=== PATIENT | female | born 1995 | race Caucasian/White ===

== ENCOUNTER 2019-02-19 18:02 | Emergency (ER) | payer BC, MEDICAID ==
[2019-02-19] MEDS ORDERED: Cephalexin 500 MG Cap PO ONE (18:26)
[2019-02-19] MEDS ORDERED: diphenhydrAMINE 25 MG Tab PO ONE (18:26)
[2019-02-19] MEDS ORDERED: predniSONE 10 MG Tab PO ONE (18:26)
--- NOTE | 2019-02-19 18:31 | EDM.PDOC ---
ED HPI GENERAL MEDICAL PROBLEM - General Chief Complaint: Skin Complaint Stated Complaint: ALLERGIC REACTION Time Seen by Provider: 02/19/19 18:10 Source of Information: Reports: Patient History Limitations: Reports: No Limitations - History of Present Illness INITIAL COMMENTS - FREE TEXT/NARRATIVE: ED with c/o of allergic reaction with rash to hands and arms. Notes new type product and has hx of eczema. Onset one week ago. Has not tried anything for rash. Tonight chest feeling tight. No cough No hoarseness no difficulty swallowing. Itching. no fever or chills. - Related Data Allergies Allergy/AdvReac Type Severity Reaction Status Date / Time No Known Allergies Allergy Verified 02/19/19 18:47 Home Meds: Home Meds . [No Known Home Meds] 05/28/14 [History] Past Medical History - Past Health History Medical/Surgical History: Denies Medical/Surgical History ED ROS GENERAL - Review of Systems Review Of Systems: Comprehensive ROS is negative, except as noted in HPI. ED EXAM, SKIN/RASH Exam: See Below Exam Limited By: No Limitations General Appearance: Alert, No Apparent Distress Eye Exam: Bilateral Eye: EOMI Ears: Normal External Exam Nose: Normal Inspection Throat/Mouth: Normal Inspection, Normal Lips, Normal Voice, No Airway Compromise Head: Atraumatic, Normocephalic Neck: Normal Inspection Respiratory/Chest: No Respiratory Distress, Lungs Clear, Normal Breath Sounds Cardiovascular: Normal Peripheral Pulses, Regular Rate, Rhythm GI/Abdominal: Normal Bowel Sounds, Soft Extremities: Normal Inspection Neurological: Alert, Oriented, Normal Cognition Psychiatric: Anxious Skin: Warm, Dry, Rash (few hive type patches bilateral forearms, scattered excoriations to hands and lower forearm. tina areas on upper arms, no lesion to web spacing, ) Characteristics: Patchy, Vesicular (few small lower forearms). No: Linear Associated features: Inflammation, Rough. No: Weeping Course - Vital Signs Last Recorded V/S: Last Vital Signs Temp 96.8 F 02/19/19 18:02 Pulse 62 02/19/19 18:02 Resp 16 02/19/19 18:02 BP 110/71 02/19/19 18:02 Pulse Ox 98 02/19/19 18:02 - Orders/Labs/Meds Meds: Medications Discontinued Medications Generic Name Dose Route Start Last Admin Trade Name Freq PRN Reason Stop Dose Admin Cephalexin 500 mg 02/19/19 18:26 02/19/19 18:43 Keflex PO 02/19/19 18:27 500 mg ONETIME ONE Administration Diphenhydramine HCl 25 mg 02/19/19 18:26 02/19/19 18:45 Benadryl PO 02/19/19 18:27 25 mg ONETIME ONE Administration Prednisone 10 mg 02/19/19 18:26 02/19/19 18:44 Prednisone PO 02/19/19 18:27 10 mg ONETIME ONE Administration Departure - Departure Time of Disposition: 18:27 Disposition: Home, Self-Care 01 Condition: Good Clinical Impression: Pruritic rash Contact dermatitis Qualifiers: Contact dermatitis type: irritant Contact dermatitis trigger: unspecified trigger Qualified Code(s): L24.9 - Irritant contact dermatitis, unspecified cause - Discharge Information *PRESCRIPTION DRUG MONITORING PROGRAM REVIEWED*: No *COPY OF PRESCRIPTION DRUG MONITORING REPORT IN PATIENT MAMIE: No Instructions: Rash Referrals: David Pandya NP [Primary Care Provider] - Forms: ED Department Discharge Additional Instructions: prednisone 10mg one daily x 5 days benadryl 25mg one every 4 hours as needed for itching rash keflex 500mg one three times daily x 7 days follow up if worsening fever chills. monitor if spreading of lesions, especially to others or web spaces or other parts of body Sepsis Event Note - Focused Exam Vital Signs: Vital Signs Temp Pulse Resp BP Pulse Ox 02/19/19 18:02 96.8 F 62 16 110/71 98 Date Exam was Performed: 02/20/19 Time Exam was Performed: 04:59
[2019-02-19 18:47] VITALS: BP 110/71; PULSE 62
== END 2019-02-19 18:54 | disposition home or self-care (01) ==
LOC: DL.ED 18:02
DX: L24.9 Irritant contact dermatitis, unspecified cause (principal); L29.9 Pruritus, unspecified
CPT/HCPCS: 99283; A9270

== ENCOUNTER 2019-11-27 18:22 | Emergency (ER) | payer MEDICAID ==
[2019-11-27 18:47] VITALS: BP 116/76; PULSE 99
[2019-11-27] MEDS ORDERED: Amoxicillin/Clavulanate K 875-125 MG Tab PO ONE (18:57)
[2019-11-27] MEDS ORDERED: Ibuprofen 600 MG Tab PO ONE (18:59)
--- NOTE | 2019-11-27 19:04 | EDM.PDOC ---
ED HPI GENERAL MEDICAL PROBLEM - General Chief Complaint: ENT Problem Stated Complaint: BOTH EARS HURT, INFECTION, HEAD HURTS Time Seen by Provider: 11/27/19 18:45 Source of Information: Reports: Patient History Limitations: Reports: No Limitations - History of Present Illness INITIAL COMMENTS - FREE TEXT/NARRATIVE: c/o right ear pain x 2 weeks. Seen in clinic on Friday started on Cipro ear drops, not helping, Increased ear pain radiating down neck on right side and up to forehead. no fever chills or sore throat Right Ear Pain Score (Numeric/FACES): 7 - Related Data Allergies Allergy/AdvReac Type Severity Reaction Status Date / Time No Known Allergies Allergy Verified 11/27/19 18:47 Home Meds: Home Meds Ciprofloxacin HCl/Dexameth [Ciproflox-Dexameth Otic Susp] 7.5 ml OT 11/27/19 [History] Past Medical History - Past Health History Medical/Surgical History: Denies Medical/Surgical History HEENT History: Reports: None Cardiovascular History: Reports: None Respiratory History: Reports: Asthma Genitourinary History: Reports: None CLIENT ADVOCATE History: Reports: None Musculoskeletal History: Reports: None Neurological History: Reports: None Psychiatric History: Reports: Anxiety, Depression Endocrine/Metabolic History: Reports: None Hematologic History: Reports: None Immunologic History: Reports: None Oncologic (Cancer) History: Reports: None Dermatologic History: Reports: None - Infectious Disease History Infectious Disease History: Reports: None Social & Family History - Family History Family Medical History: Noncontributory - Tobacco Use Smoking Status *Q: Never Smoker - Caffeine Use Caffeine Use: Reports: Coffee - Recreational Drug Use Recreational Drug Use: No ED ROS ENT - Review of Systems Review Of Systems: Comprehensive ROS is negative, except as noted in HPI. ED EXAM, ENT - Physical Exam Exam: See Below Exam Limited By: No Limitations General Appearance: Alert, Mild Distress Eye Exam: Bilateral Eye: EOMI Ears: Normal External Exam, Normal Canal (mild erythema right), Auricular Tenderness, TM Erythema (right), TM Fluid (bilateral right greater). No: Mastoid Swelling, Mastoid Tenderness, TM Perforation Nose: Normal Inspection Mouth/Throat: Normal Inspection Head: Atraumatic, Normocephalic Neck: Normal Inspection, Full Range of Motion, Lymphadenopathy (R) (anterior) Respiratory/Chest: No Respiratory Distress, Lungs Clear, Normal Breath Sounds Cardiovascular: Normal Peripheral Pulses, Regular Rate, Rhythm Extremities: Normal Inspection, Normal Range of Motion Psychiatric: Normal Affect, Normal Mood Skin: Warm, Dry, Intact, Normal Color Course - Vital Signs Last Recorded V/S: Last Vital Signs Temp 99.4 F 11/27/19 18:44 Pulse 99 11/27/19 18:44 Resp 18 11/27/19 18:44 BP 116/76 11/27/19 18:44 Pulse Ox 97 11/27/19 18:44 - Orders/Labs/Meds Meds: Medications Discontinued Medications Generic Name Dose Route Start Last Admin Trade Name Freq PRN Reason Stop Dose Admin Amoxicillin/Clavulanate Potassium 1 tab 11/27/19 18:57 11/27/19 19:02 Augmentin 875 Mg/125 Mg PO 11/27/19 18:58 1 tab ONETIME ONE Administration Ibuprofen 600 mg 11/27/19 18:59 11/27/19 19:04 Motrin PO 11/27/19 19:00 600 mg ONETIME ONE Administration Departure - Departure Time of Disposition: 19:02 Disposition: Home, Self-Care 01 Condition: Good Clinical Impression: Otitis media Qualifiers: Otitis media type: suppurative Chronicity: acute Laterality: bilateral Recurrence: not specified as recurrent Spontaneous tympanic membrane rupture: without spontaneous rupture Qualified Code(s): H66.003 - Acute suppurative o titis media without spontaneous rupture of ear drum, bilateral - Discharge Information *PRESCRIPTION DRUG MONITORING PROGRAM REVIEWED*: No Instructions: Otitis Media, Adult, [id number] Forms: ED Department Discharge Additional Instructions: alternate tylenol 650mg and ibuprofen 600mg every 4 hours as needed for discomfort omnicef 300mg one twice daily for 7 days recheck clinic upcoming week may stop ear drops when obtain oral antibiotic from pharmacy Sepsis Event Note (ED) - Evaluation Sepsis Screening Result: No Definite Risk - Focused Exam Vital Signs: Vital Signs Temp Pulse Resp BP Pulse Ox 11/27/19 18:44 99.4 F 99 18 116/76 97
== END 2019-11-27 19:09 | disposition home or self-care (01) ==
LOC: DL.ED 18:22
DX: H66.003 Acute suppurative otitis media without spontaneous rupture of ear drum, bilateral (principal)
CPT/HCPCS: 99282; A9270

== ENCOUNTER 2023-01-24 08:28 | Inpatient (IN) | payer MEDICAID ==
[2023-01-24] MEDS ORDERED: Sodium Chloride 0.9% 10 ML Syringe FLUSH PRN (08:36)
[2023-01-24] MEDS ORDERED: Sodium Chloride 0.9% 1,000 ML IV ONE (08:38)
[2023-01-24] MEDS ORDERED: HYDROmorphone 1 MG/ML Syringe IVPUSH ONE ×2 (08:38→08:46)
[2023-01-24] MEDS ORDERED: Ondansetron 4 MG/2 ML SDV IV ONE (08:38)
[2023-01-24] MEDS ORDERED: Famotidine 20 MG/2 ML SDV IVPUSH ONE (08:46)
[2023-01-24 08:47] LABS: BASOPHILS PERCENT AUTO 0.6 % (0.0-1.0); EOSINOPHILS PERCENT AUTO 1.3 % (1.0-3.0); HEMATOCRIT 41.7 % (37.0-47.0); HEMOGLOBIN 14.1 g/dL (12.0-16.0); LYMPHOCYTES PERCENT AUTO 21.6 % (20.5-50.1); MEAN CORPUSCULAR HGB CONC 33.8 g/dL (33.0-35.0); MEAN CORPUSCULAR VOLUME 85.8 fL (80-100); MONOCYTES PERCENT AUTO 7.5 % (2-8); PLATELET COUNT,PLT 321 10^3/uL (150-450); RED BLOOD CELL COUNT 4.86 10^6/uL (4.2-5.4); WHITE BLOOD CELL COUNT,WBC 7.2 10^3/uL (5.0-10.0)
[2023-01-24 09:14] LABS: LACTIC ACID 1.9 mmol/L (0.4-2.0)
[2023-01-24 09:18] LABS: A/G RATIO 0.9; ALANINE AMINOTRANSFERASE,ALT 73 U/L (14-59); ALBUMIN 3.8 g/dL (3.4-5.0); ALKALINE PHOSPHATASE 102 U/L (46-116); AMYLASE 46 U/L (25-115); ANION GAP 10.7 mEq/L (7-13); ASPARTATE AMNIOTRANSFERASE,AST 31 U/L (15-37); BILIRUBIN TOTAL 0.5 mg/dL (0.2-1.0); BLOOD UREA NITROGEN,BUN 13 mg/dL (7-18); BUN/CREATININE RATIO 14.8 (No establ ref range); CALCIUM 8.9 mg/dL (8.5-10.1); CARBON DIOXIDE,CO2 28 mmol/L (21-32); CHLORIDE,CL 101 mmol/L (98-107); CREATININE 0.88 mg/dL (0.55-1.02); EST CRCL DRUG DOSING (CG) 75.95 mL/min; GLUCOSE RANDOM 113 mg/dL (70-99); POTASSIUM,K 3.7 mmol/L (3.5-5.1); SODIUM,NA 136 mmol/L (136-145)
[2023-01-24 09:20] LABS: ESTIMATED GFR 92 mL/min (>=60); LIPASE > 250 U/L (16-77)
[2023-01-24 09:29] LABS: HCG QUALITATIVE,SERUM NEGATIVE (NEGATIVE)
[2023-01-24] MEDS ORDERED: Iopamidol 612 MG/ML 100 ML Bottle IVPUSH ONE ×2 (09:30)
[2023-01-24] MEDS ORDERED: Temazepam 15 MG Cap PO PRN (11:31)
[2023-01-24] MEDS ORDERED: Albuterol/Ipratropium 3.0-0.5 MG/3 ML Neb Soln NEB PRN (11:31)
[2023-01-24] MEDS ORDERED: Acetaminophen 325 MG Tab PO PRN (11:31)
[2023-01-24] MEDS ORDERED: Acetaminophen/oxyCODONE 325-5 MG Tab PO PRN (11:31)
[2023-01-24] MEDS ORDERED: Metoprolol Tartrate 5 MG/5 ML SDV IVPUSH PRN (11:36)
[2023-01-24] MEDS ORDERED: hydrALAZINE 20 MG/ML SDV IVPUSH PRN (11:36)
[2023-01-24 11:55] LABS: CHOLESTEROL HDL 38 mg/dL (40-59)
[2023-01-24 12:11] LABS: CHOLESTEROL LDL CALCULATED 157 mg/dL (0-100); CHOLESTEROL TOTAL 234 mg/dL (0-199); TRIGLYCERIDES 197 mg/dL (0-149)
[2023-01-24] MEDS: Dextrose 5%-0.9% NaCl 1,000 ML IV SCH (12:47)
[2023-01-24] MEDS: HYDROmorphone 0.5 MG/0.5 ML Syringe IVPUSH PRN ×3 (12:49→21:10)
[2023-01-24] MEDS ORDERED: Zolpidem 5 MG Tab PO PRN (15:01)
[2023-01-24] MEDS: Ondansetron 4 MG/2 ML SDV IVPUSH PRN ×2 (15:21→21:50)
[2023-01-24] MEDS: Famotidine 20 MG/2 ML SDV IVPUSH SCH (21:06)
[2023-01-24] MEDS: Ketorolac 30 MG/ML SDV IVPUSH PRN (23:28)
[2023-01-25] MEDS: HYDROmorphone 0.5 MG/0.5 ML Syringe IVPUSH PRN ×4 (00:18→16:48)
[2023-01-25 06:16] LABS: BASOPHILS PERCENT AUTO 0.3 % (0.0-1.0); EOSINOPHILS PERCENT AUTO 1.6 % (1.0-3.0); HEMATOCRIT 38.2 % (37.0-47.0); HEMOGLOBIN 12.6 g/dL (12.0-16.0); LYMPHOCYTES PERCENT AUTO 23.2 % (20.5-50.1); MEAN CORPUSCULAR HEMOGLOBIN 28.8 pg (27.0-34.0); MEAN CORPUSCULAR VOLUME 87.2 fL (80-100); MONOCYTES PERCENT AUTO 6.8 % (2-8); NEUTROPHILS PERCENT AUTO 68.1 % (42.2-75.2); PLATELET COUNT,PLT 256 10^3/uL (150-450); RED BLOOD CELL COUNT 4.38 10^6/uL (4.2-5.4); WHITE BLOOD CELL COUNT,WBC 6.3 10^3/uL (5.0-10.0)
[2023-01-25 06:41] LABS: ALBUMIN 3.2 g/dL (3.4-5.0); ANION GAP 7.6 mEq/L (7-13); BILIRUBIN TOTAL 0.5 mg/dL (0.2-1.0); BUN/CREATININE RATIO 13.8 (No establ ref range); CALCIUM 8.2 mg/dL (8.5-10.1); CREATININE 0.8 mg/dL (0.55-1.02); EST CRCL DRUG DOSING (CG) 75.87 mL/min; MAGNESIUM 2.2 mg/dL (1.8-2.4); POTASSIUM,K 3.6 mmol/L (3.5-5.1)
[2023-01-25 06:46] LABS: A/G RATIO 0.84
[2023-01-25] MEDS: Dextrose 5%-0.9% NaCl 1,000 ML IV SCH (08:58)
[2023-01-25] MEDS: Famotidine 20 MG/2 ML SDV IVPUSH SCH ×2 (08:58→21:07)
[2023-01-25] MEDS ORDERED: oxyCODONE ER 20 MG TAB.ER PO SCH (09:00)
[2023-01-25] MEDS: Naloxone 2 MG/2 ML Syringe IVPUSH PRN ×2 (19:51→19:58)
[2023-01-25] MEDS: Ondansetron 4 MG/2 ML SDV IVPUSH PRN (19:51)
[2023-01-25] MEDS ORDERED: Lidocaine 2% Viscous Solution 15 ML UD PO PRN (20:42)
[2023-01-25] MEDS: Ketorolac 30 MG/ML SDV IVPUSH PRN (20:59)
[2023-01-25 22:19] LABS: AMPHETAMINES,URINE NEGATIVE (NEGATIVE); BARBITURATES,URINE NEGATIVE (NEGATIVE); BENZODIAZEPINE,URINE NEGATIVE (NEGATIVE); PHENCYCLIDINE,URINE NEGATIVE (NEGATIVE); TCA,URINE NEGATIVE (NEGATIVE)
[2023-01-25 22:20] LABS: MDMA (ECSTASY), URINE NEGATIVE (NEGATIVE); METHADONE,URINE NEGATIVE (NEGATIVE); METHAMPHETAMINES,URINE NEGATIVE (NEGATIVE); OPIATES,URINE NEGATIVE (NEGATIVE)
[2023-01-25 22:23] LABS: OXYCODONE,URINE POSITIVE (NEGATIVE)
[2023-01-26 06:46] LABS: BASOPHILS PERCENT AUTO 0.6 % (0.0-1.0); EOSINOPHILS PERCENT AUTO 1.9 % (1.0-3.0); HEMATOCRIT 37.8 % (37.0-47.0); HEMOGLOBIN 12.7 g/dL (12.0-16.0); LYMPHOCYTES PERCENT AUTO 22.9 % (20.5-50.1); MEAN CORPUSCULAR HEMOGLOBIN 29.2 pg (27.0-34.0); MEAN CORPUSCULAR HGB CONC 33.6 g/dL (33.0-35.0); MEAN CORPUSCULAR VOLUME 86.9 fL (80-100); MONOCYTES PERCENT AUTO 7.1 % (2-8); NEUTROPHILS PERCENT AUTO 67.5 % (42.2-75.2); PLATELET COUNT,PLT 250 10^3/uL (150-450); RED BLOOD CELL COUNT 4.35 10^6/uL (4.2-5.4); WHITE BLOOD CELL COUNT,WBC 5.4 10^3/uL (5.0-10.0)
[2023-01-26 07:13] LABS: ALANINE AMINOTRANSFERASE,ALT 54 U/L (14-59); ALBUMIN 3.3 g/dL (3.4-5.0); ALKALINE PHOSPHATASE 89 U/L (46-116); ANION GAP 8.5 mEq/L (7-13); ASPARTATE AMNIOTRANSFERASE,AST 20 U/L (15-37); BILIRUBIN TOTAL 0.5 mg/dL (0.2-1.0); BLOOD UREA NITROGEN,BUN 9 mg/dL (7-18); BUN/CREATININE RATIO 11.5 (No establ ref range); CALCIUM 8.4 mg/dL (8.5-10.1); CARBON DIOXIDE,CO2 28 mmol/L (21-32); CHLORIDE,CL 104 mmol/L (98-107); CREATININE 0.78 mg/dL (0.55-1.02); EST CRCL DRUG DOSING (CG) 77.82 mL/min; GLUCOSE RANDOM 88 mg/dL (70-99); MAGNESIUM 2.3 mg/dL (1.8-2.4); POTASSIUM,K 3.5 mmol/L (3.5-5.1); PROTEIN TOTAL,TP 7.2 g/dL (6.4-8.2); SODIUM,NA 137 mmol/L (136-145)
[2023-01-26 07:34] LABS: A/G RATIO 0.85; ESTIMATED GFR 107 mL/min (>=60); LIPASE > 250 U/L (16-77)
[2023-01-26] MEDS ORDERED: Iopamidol 755 Mg/ML 100 ML Bottle IVPUSH ONE (08:07)
[2023-01-26] MEDS: Famotidine 20 MG/2 ML SDV IVPUSH SCH (08:22)
[2023-01-26] MEDS ORDERED: Iopamidol 612 MG/ML 100 ML Bottle IVPUSH ONE (08:59)
[2023-01-26] MEDS ORDERED: Bisacodyl 10 MG Supp RECTAL PRN (10:49)
[2023-01-26] MEDS ORDERED: Bisacodyl 10 MG Supp RECTAL ONE (10:49)
[2023-01-26] MEDS ORDERED: Sodium Chloride 0.9% 1,000 ML IV SCH (11:00)
[2023-01-26] MEDS: Ketorolac 30 MG/ML SDV IVPUSH PRN (11:17)
[2023-01-26] MEDS: Acetaminophen/Butalbital/Caffeine 325-50-40 MG Tab PO PRN ×2 (13:17→20:39)
[2023-01-26] MEDS: Lactulose Soln 10 GM/15 ML 30 ML UD Cup PO SCH ×2 (13:18→22:39)
[2023-01-26] MEDS: Famotidine 20 MG Tab PO SCH (20:40)
[2023-01-27] MEDS: Lactulose Soln 10 GM/15 ML 30 ML UD Cup PO SCH (05:31)
[2023-01-27 06:41] LABS: BASOPHILS PERCENT AUTO 0.7 % (0.0-1.0); HEMATOCRIT 40.8 % (37.0-47.0); HEMOGLOBIN 13.7 g/dL (12.0-16.0); MEAN CORPUSCULAR HEMOGLOBIN 28.8 pg (27.0-34.0); MEAN CORPUSCULAR HGB CONC 33.6 g/dL (33.0-35.0); MEAN CORPUSCULAR VOLUME 85.9 fL (80-100); MONOCYTES PERCENT AUTO 8.1 % (2-8); NEUTROPHILS PERCENT AUTO 71.2 % (42.2-75.2); PLATELET COUNT,PLT 262 10^3/uL (150-450); RED BLOOD CELL COUNT 4.75 10^6/uL (4.2-5.4)
[2023-01-27 07:03] LABS: A/G RATIO 0.9; ALANINE AMINOTRANSFERASE,ALT 54 U/L (14-59); ALBUMIN 3.6 g/dL (3.4-5.0); ALKALINE PHOSPHATASE 93 U/L (46-116); ANION GAP 10.7 mEq/L (7-13); ASPARTATE AMNIOTRANSFERASE,AST 23 U/L (15-37); BILIRUBIN TOTAL 0.5 mg/dL (0.2-1.0); BLOOD UREA NITROGEN,BUN 10 mg/dL (7-18); BUN/CREATININE RATIO 10.9 (No establ ref range); CALCIUM 8.5 mg/dL (8.5-10.1); CARBON DIOXIDE,CO2 28 mmol/L (21-32); CHLORIDE,CL 102 mmol/L (98-107); CREATININE 0.92 mg/dL (0.55-1.02); EST CRCL DRUG DOSING (CG) 65.98 mL/min; GLUCOSE RANDOM 97 mg/dL (70-99); MAGNESIUM 2.3 mg/dL (1.8-2.4); POTASSIUM,K 3.7 mmol/L (3.5-5.1); PROTEIN TOTAL,TP 7.6 g/dL (6.4-8.2); SODIUM,NA 137 mmol/L (136-145)
[2023-01-27 07:04] LABS: ESTIMATED GFR 88 mL/min (>=60)
[2023-01-27 07:05] LABS: C-REACTIVE PROTEIN < 0.50 ng/dL (<=0.50); LIPASE > 250 U/L (16-77)
[2023-01-27] MEDS: Famotidine 20 MG Tab PO SCH (08:22)
[2023-01-27] MEDS: Acetaminophen/Butalbital/Caffeine 325-50-40 MG Tab PO PRN (08:30)
[2023-01-27 11:37] VITALS: BP 137/89; PULSE 71
== END 2023-01-27 12:25 | disposition home or self-care (01) | DRG 440 ==
LOC: DL.ED 08:28 → DL.MS 10:28 → DL.ED 10:55
PROVIDERS: ADMIT Internal Medicine; ATTEND Internal Medicine
DX: K85.00 Idiopathic acute pancreatitis without necrosis or infection (principal); K76.0 Fatty (change of) liver, not elsewhere classified; E78.5 Hyperlipidemia, unspecified; E66.9 Obesity, unspecified; I10 Essential (primary) hypertension; E11.65 Type 2 diabetes mellitus with hyperglycemia; J45.998 Other asthma; F41.9 Anxiety disorder, unspecified; F32.A Depression, unspecified; Z68.34 Body mass index [BMI] 34.0-34.9, adult; Z79.899 Other long term (current) drug therapy
CPT/HCPCS: 36415; 70450; 71045; 74177; 80053; 80061; 80305-QW; 82150; 82947; 83605; 83690; 83735; 84484; 84703; 85025; 86140; 93005; 93010; 94664; 96374; 96375; 99223; 99232; 99233; 99238; 99284; 99285-25; A9270-GY; J1170; J1885; J2310; J2405; J3490; J7030; J7042; Q9967

== ENCOUNTER 2023-08-27 12:36 | Emergency (ER) | payer MEDICAID ==
[2023-08-27 13:03] VITALS: BP 147/115; PULSE 67
[2023-08-27 13:06] LABS: BASOPHILS PERCENT AUTO 1.3 % (0.0-1.0); EOSINOPHILS PERCENT AUTO 1.3 % (1.0-3.0); HEMATOCRIT 38.2 % (37.0-47.0); HEMOGLOBIN 13.1 g/dL (12.0-16.0); LYMPHOCYTES PERCENT AUTO 23.6 % (20.5-50.1); MEAN CORPUSCULAR HEMOGLOBIN 30.6 pg (27.0-34.0); MEAN CORPUSCULAR HGB CONC 34.3 g/dL (33.0-35.0); MEAN CORPUSCULAR VOLUME 89.3 fL (80-100); MONOCYTES PERCENT AUTO 8.5 % (2-8); NEUTROPHILS PERCENT AUTO 65.3 % (42.2-75.2); PLATELET COUNT,PLT 266 10^3/uL (150-450); RED BLOOD CELL COUNT 4.28 10^6/uL (4.2-5.4); WHITE BLOOD CELL COUNT,WBC 6.3 10^3/uL (5.0-10.0)
[2023-08-27 13:34] LABS: INR 0.9 (0.9-1.2); PROTHROMBIN TIME 9.8 SEC (9.0-12.0); PTT,PARTIAL THROMBOPLSTIN TIME 25.7 SEC (22.0-34.0)
[2023-08-27 13:35] LABS: A/G RATIO 0.9; ALANINE AMINOTRANSFERASE,ALT 188 U/L (14-59); ALBUMIN 3.7 g/dL (3.4-5.0); ALKALINE PHOSPHATASE 74 U/L (46-116); ANION GAP 8.9 mEq/L (7-13); ASPARTATE AMNIOTRANSFERASE,AST 117 U/L (15-37); BILIRUBIN TOTAL 0.5 mg/dL (0.2-1.0); BLOOD UREA NITROGEN,BUN 12 mg/dL (7-18); BUN/CREATININE RATIO 13.6 (No establ ref range); CALCIUM 9.3 mg/dL (8.5-10.1); CARBON DIOXIDE,CO2 29 mmol/L (21-32); CHLORIDE,CL 101 mmol/L (98-107); CREATINE KINASE,CK 66 U/L (16-191); CREATININE 0.88 mg/dL (0.55-1.02); GLUCOSE RANDOM 92 mg/dL (70-99); POTASSIUM,K 3.9 mmol/L (3.5-5.1); PROTEIN TOTAL,TP 7.6 g/dL (6.4-8.2); SODIUM,NA 135 mmol/L (136-145); TSH ULTRASENSITIVE 5.58 uIU/mL (0.36-3.74)
[2023-08-27 13:37] LABS: APPEARANCE,URINE CLEAR (CLEAR); BILIRUBIN,URINE NEGATIVE (NEGATIVE); COLOR,URINE YELLOW (YELLOW); GLUCOSE,URINE NEGATIVE (NEGATIVE); KETONES,URINE NEGATIVE (NEGATIVE); LEUKOCYTE ESTERASE,URINE NEGATIVE (NEGATIVE); NITRITE,URINE NEGATIVE (NEGATIVE); OCCULT BLOOD,URINE LARGE (NEGATIVE); PROTEIN,URINE NEGATIVE (NEGATIVE); UROBILINOGEN,URINE 0.2 mg/dL (0.2-1.0)
[2023-08-27 13:37] LABS: D-DIMER QUANTITATIVE < 100 ng/mL (0-400)
[2023-08-27 13:38] LABS: ESTIMATED GFR 92 mL/min (>=60)
[2023-08-27 13:40] LABS: AMPHETAMINES,URINE NEGATIVE (NEGATIVE); BARBITURATES,URINE NEGATIVE (NEGATIVE); BENZODIAZEPINE,URINE NEGATIVE (NEGATIVE); MDMA (ECSTASY), URINE NEGATIVE (NEGATIVE); METHADONE,URINE NEGATIVE (NEGATIVE); METHAMPHETAMINES,URINE NEGATIVE (NEGATIVE); OPIATES,URINE NEGATIVE (NEGATIVE); OXYCODONE,URINE NEGATIVE (NEGATIVE); PHENCYCLIDINE,URINE NEGATIVE (NEGATIVE); TCA,URINE NEGATIVE (NEGATIVE)
[2023-08-27] MEDS: Sodium Chloride 0.9% 1,000 ML IV ONE (14:10)
[2023-08-27] MEDS: Sodium Chloride 0.9% 10 ML Syringe FLUSH PRN (14:10)
[2023-08-27 14:25] LABS: BACTERIA,URINE MODERATE /HPF (0-FEW/HPF); EPITHELIAL CELLS,URINE MODERATE /HPF (NOT SEEN); MUCUS,URINE MODERATE /LPF (NOT SEEN)
[2023-08-27 14:43] LABS: B-TYPE NATRIURETIC PEPTIDE,BNP 13 pg/ml (0-100)
== END 2023-08-27 15:15 | disposition home or self-care (01) ==
LOC: DL.ED 12:36
DX: R55 Syncope and collapse (principal)
CPT/HCPCS: 36415; 70450; 71046; 72125; 80053; 80305; 81001; 81025; 82550; 82947; 83735; 83880; 84443; 84484; 85025; 85379; 85610; 85730; 93005; 96360; 99284; J7030; J3490

== ENCOUNTER 2024-01-17 23:38 | Emergency (ER) | payer MEDICAID ==
[2024-01-18 00:04] VITALS: BP 135/99; PULSE 76
[2024-01-18 01:08] LABS: BASOPHILS PERCENT AUTO 1.1 % (0.0-1.0); HEMOGLOBIN 13.7 g/dL (12.0-16.0); LYMPHOCYTES PERCENT AUTO 25.1 % (20.5-50.1); MEAN CORPUSCULAR HEMOGLOBIN 29.7 pg (27.0-34.0); MEAN CORPUSCULAR HGB CONC 34.3 g/dL (33.0-35.0); MEAN CORPUSCULAR VOLUME 86.8 fL (80-100); NEUTROPHILS PERCENT AUTO 65.8 % (42.2-75.2); PLATELET COUNT,PLT 309 10^3/uL (150-450); RED BLOOD CELL COUNT 4.61 10^6/uL (4.2-5.4); WHITE BLOOD CELL COUNT,WBC 7.5 10^3/uL (5.0-10.0)
[2024-01-18] MEDS ORDERED: Silver Nitrate Applicator Each ONE (01:15)
[2024-01-18 01:26] LABS: INR 0.9 (0.9-1.2); PROTHROMBIN TIME 9.7 SEC (9.0-12.0); PTT,PARTIAL THROMBOPLSTIN TIME 28.1 SEC (22.0-34.0)
[2024-01-18 01:27] LABS: A/G RATIO 0.8; ALBUMIN 3.7 g/dL (3.4-5.0); ANION GAP 11.9 mEq/L (7-13); BILIRUBIN TOTAL 0.3 mg/dL (0.2-1.0); BUN/CREATININE RATIO 12.8 (No establ ref range); CALCIUM 8.8 mg/dL (8.5-10.1); CREATININE 0.86 mg/dL (0.55-1.02); EST CRCL DRUG DOSING (CG) 77.03 mL/min; POTASSIUM,K 3.9 mmol/L (3.5-5.1); PROTEIN TOTAL,TP 8.1 g/dL (6.4-8.2)
== END 2024-01-18 02:05 | disposition home or self-care (01) ==
LOC: DL.ED 23:38
DX: N99.820 Postprocedural hemorrhage of a genitourinary system organ or structure following a genitourinary system procedure (principal); Z90.710 Acquired absence of both cervix and uterus
CPT/HCPCS: 36415; 80053; 85025; 85610; 85730; 99283; 99284